=== PATIENT | female | born 1955 | race Caucasian/White ===

== ENCOUNTER → 2023-10-08 | Outpatient (CLI) | payer SELFPAY ==
[2023-10-08 11:33] LABS: Thyroid Stimulating Hormone 1.875 uIU/mL (0.360-4.800); Uric Acid, Blood 6.8 mg/dL (2.6-6.0)
== END ==
LOC: LAB 10:36 → LAB SHORT 10:36
PROVIDERS: Physician Assistant
DX: E03.9 Hypothyroidism, unspecified (principal); Z87.39 Personal history of other diseases of the musculoskeletal system and connective tissue
CPT/HCPCS: 36415; 84443; 84550